=== PATIENT | female | born 1935 | race Caucasian/White ===

== ENCOUNTER → 2016-06-07 | Outpatient (CLI) | payer MEDICARE, OTHER ==
[2016-06-07 11:36] LABS: ALBUMIN 4.7 g/dL (3.4-5.0); ANION GAP 19.7 MEQ/L (3-15); PHOSPHORUS 4.1 mg/dL (2.4-4.9)
== END ==
LOC: LAB 10:27
PROVIDERS: ATTEND Internal Medicine Nephrology
DX: N18.5 Chronic kidney disease, stage 5 (principal)
CPT/HCPCS: 36415; 80069; 82570; 84156